=== PATIENT | female | born 1980 | race Caucasian/White ===

== ENCOUNTER 2022-05-11 14:12 | Emergency (ER) | payer BC, SELFPAY ==
[2022-05-11 14:13] VITALS: BP 131/82; RESP 21; TEMP 36.3; O2SAT 100
--- NOTE | 2022-05-11 14:41 | ED_ITS ---
HPI - Abdominal Pain General Chief Complaint: Abdominal Pain Stated Complaint: Abdominal pain L side Time Seen by Provider: 05/11/22 14:19 History of Present Illness HPI narrative: This 42-year-old female comes in with left lower quadrant abdominal pain that began a few days ago. She states that it is a constant pain that is worse with movement. She reports that the pain was worse going over bumps in the car on the way here. She denies having any fevers, altered bowel function, blood in the toilet, dysuria, or other symptoms. She does have a history of diverticulitis a couple times in the past and states that these symptoms feel very similar. Related Data Previous Rx's Medication Instructions Recorded ciprofloxacin HCl 500 mg tablet 500 mg PO BID #20 tabs 05/11/22 (Cipro) fluconazole 100 mg tablet 100 mg PO DAILY #10 tabs 05/11/22 (Diflucan) hydrocodone 5 mg-acetaminophen 325 1 tab PO Q4-6H PRN pain #10 tabs 05/11/22 mg tablet metronidazole 500 mg tablet 500 mg PO BID 10 days #20 tabs 05/11/22 Allergies Allergy/AdvReac Type Severity Reaction Status Date / Time codeine AdvReac Severe Anaphylaxis Verified 05/11/22 14:16 Review of Systems Status of ROS Reports: 10 or more systems reviewed and unremarkable except as noted in History and below Narrative Constitutional: No fevers, no weight gain or loss. Eyes: No discharge. No vision changes. HENT: No congestion, no sore throat, no ear pain. Cardiovascular: No chest pain, no palpitations. Respiratory: No shortness of breath, no wheezes, no cough. Gastrointestinal: No vomiting, no diarrhea. Abdominal pain as described above. Genitourinary: No dysuria, no hematuria. Musculoskeletal: Normal range of motion. Skin: No rashes, no pruritis. Neurological: No dizziness, weakness, sensory change, speech change. Endo/Heme/Allergies: No bruising or bleeding. No polydipsia. Pysch: no suicidality, no anxiety, no insomnia. All other systems reviewed and are negative. [facility] Social History Smoking Status: Never smoker Do you use any of these nicotine containing products: None Second hand tobacco smoke exposure: No How often do you have a drink containing alcohol: never How often do you have six or more drinks on one occasion: Never AUDIT-C Alcohol total score: 0 Non-prescribed substance use: denies use service: No Exam Narrative: Exam Narrative: Constitutional: Well-developed, well-nourished, no acute distress. HEENT: Normocephalic, atraumatic. Neck: Normal range of motion. Nontender. Supple. Heart: Regular. No murmurs. Normal rate. Intact distal pulses. Lungs: Clear to auscultation. No chest discomfort. No wheezes, rhonchi, or rales. Abdomen: Normal bowel sounds. Tenderness in the left lower quadrant. No flank tenderness. Mild rebound tenderness. Genitalia: Deferred. Back: No midline tenderness. Normal range of motion. Extremities: Normal range of motion. No injury. Skin: Intact. No rash. Warm. No erythema or pallor. Neurologic: No altered sensation. No weakness. Alert and oriented. Psychiatric: No suicidality. No anxiety or depression. No insomnia. Nursing notes and vitals signs are reviewed. Const: Vital Signs, click to edit/add: Vital Signs - 24 hr 05/11/22 14:13 Temperature 97.4 F L Respiratory Rate 21 Blood Pressure [Ri ght Upper Arm] 131/82 Pulse Oximetry 100 Oxygen Delivery Me thod Room Air Course Vital Signs Vital signs: Initial Vital Signs Temperature 97.4 F L 05/11/22 14:13 Temperature Source Temporal Artery Scan 05/11/22 14:13 Respiratory Rate 05/11/22 14:13 Blood Pressure 131/82 05/11/22 14:13 Blood Pressure Mean 98 05/11/22 14:13 Blood Pressure Position Sitting 05/11/22 14:13 Pulse Oximetry 100 05/11/22 14:13 Oxygen Delivery Method 05/11/22 14:13 Vital Signs Temperature 97.4 F L 05/11/22 14:13 Respiratory Rate 05/11/22 14:13 Blood Pressure 131/82 05/11/22 14:13 Pulse Oximetry 100 05/11/22 14:13 Oxygen Delivery Method 05/11/22 14:13 Temperature 97.4 F L 05/11/22 14:13 Respiratory Rate 05/11/22 14:13 Blood Pressure 131/82 05/11/22 14:13 Pulse Oximetry 100 05/11/22 14:13 Oxygen Delivery Method 05/11/22 14:13 MDM - Abdominal Pain MDM Narrative Medical decision making narrative: This patient has symptoms that are suspicious for recurrent diverticulitis. She has had this a couple times in the past. I stated the definitive diagnostic test is CT scan with IV contrast but indicated that her vital signs and exam are not indicating a complicated recurrence if it is diverticulitis. I discussed options with the patient and in a process of shared decision making she declined CT imaging for now. I did prescribe Cipro, Flagyl, Diflucan, and a few tablets of [place]. She understands signs and symptoms that would indicate a need for return and re-evaluation. At the time of discharge the patient appears safe for outpatient management. The treatment plan is reviewed along with written and verbal return precautions. Reasons to return and the importance of close followup were also reviewed. Discharge Plan Discharge Clinical Impression: Diverticulitis Patient Disposition: Home, Self-Care Condition: Unchanged Additional Instructions: Take medication as prescribed. Follow up with MD or return if not improving or worsening symptoms happen. Prescriptions: New fluconazole [Diflucan] 100 mg tablet 100 mg PO DAILY Qty: 10 0RF hydrocodone-acetaminophen 5-325 mg tablet 1 tab PO Q4-6H PRN (Reason: pain) Qty: 10 0RF metronidazole 500 mg tablet 500 mg PO BID 10 Days Qty: 20 0RF ciprofloxacin HCl [Cipro] 500 mg tablet 500 mg PO BID Qty: 20 0RF Follow Up/Referrals: Provider,Not a Local [Primary Care Provider] - Stand Alone Forms: [employer] Info Instructions
== END 2022-05-11 14:58 | disposition home or self-care (01) ==
LOC: ED 14:52
PROVIDERS: Emergency Provider Emergency Medicine Emergency Medical Services
DX: K57.92 Diverticulitis of intestine, part unspecified, without perforation or abscess without bleeding (principal)
CPT/HCPCS: 99283; 99284

== ENCOUNTER 2023-10-24 16:48 | Emergency (ER) | payer BC, SELFPAY ==
[2023-10-24 16:54] VITALS: BP 115/74; PULSE 71; RESP 18; TEMP 35.7; O2SAT 97; BMI 28.3
--- NOTE | 2023-10-24 17:11 | ED_ITS ---
HPI - Abdominal Pain General Chief Complaint: Abdominal Pain Stated Complaint: Upper middle abdomen pain-vomiting Time Seen by Provider: 10/24/23 16:50 Source: patient Mode of arrival: ambulatory Limitations: no limitations History of Present Illness HPI narrative: Patient is a 43-year-old female presenting to the emergency department for epigastric pain. She states pain started about 23:00 last night. States feels like heartburn. Has tried some antacids without any improvement in her symptoms. Denies ever having symptoms like this before. No previous abdominal surgeries other than previous . Had a bowel movement this morning that she states was normal. Has been able to drink small amounts but anything more makes her very nauseated. Has not noticed any melena or hematochezia. Denies fevers, chills, chest pain, shortness of breath, weakness, lightheadedness, dizziness. Has not taking anything else for pain. No other concerning medical conditions. States it is a burning sensation feels like heartburn and epigastric region that does not radiate anywhere. Denies dysuria, vaginal discharge, vaginal bleeding. Related Data Home Medications ?Medication ?Instructions ?Recorded ?Confirmed No Known Home Medications 10/24/23 10/24/23 Allergies Allergy/AdvReac Type Severity Reaction Status Date / Time codeine AdvReac Severe Anaphylaxis Verified 10/24/23 18:57 Review of Systems Status of ROS Reports: 10 or more systems reviewed and unremarkable except as noted in History and below [facility] Social History Smoking Status: Never smoker Do you use any of these nicotine containing products: None Second hand tobacco smoke exposure: No How often do you have a drink containing alcohol: never How often do you have six or more drinks on one occasion: Never AUDIT-C Alcohol total score: 0 Non-prescribed substance use: denies use service: No Exam Narrative: Exam Narrative: Const: Well-nourished, Well-developed, in moderate distress Eyes: PERRL, no conjunctival injection, and symmetrical lids HENT: Atraumatic external nose and ears. Moist mucous membranes. Neck: Symmetric, trachea midline, No thyromegaly. CVS: RRR, No murmurs or gallops. Peripheral pulses 2+ and equal in all extremities RESP: Unlabored respiratory effort. Clear to auscultation bilaterally. GI: Nontender/Nondistended, No rebound or guarding. MSK:Extremities w/o deformity, Normal Active ROM Skin: Warm, Dry. No rashes or lesions. Neuro: Normal Muscle tone, No focal neurological deficits. Psych: Awake, Alert, & Oriented x3. Appropriate mood and affect. Const: Vital Signs, click to edit/add: Vital Signs - 24 hr 10/24/23 16:54 Temperature 96.3 F L Pulse Rate [Pulse Oximeter] 71 Respiratory Rate 18 Blood Pressure [Ri t Upper Arm] 115/74 Pulse Oximetry 97 Oxygen Delivery Me thod Room Air Course Vital Signs Vital signs: Initial Vital Signs Temperature 96.3 F L 10/24/23 16:54 Temperature Source Temporal Artery Scan 10/24/23 16:54 Pulse Rate 71 10/24/23 16:54 Respiratory Rate 18 10/24/23 16:54 Blood Pressure 115/74 10/24/23 16:54 Blood Pressure Mean 87 10/24/23 16:54 Blood Pressure Position Sitting 10/24/23 16:54 Pulse Oximetry 97 10/24/23 16:54 Oxygen Delivery Method Room Air 10/24/23 16:54 Vital Signs Temperature 96.3 F L 10/24/23 16:54 Pulse Rate 71 10/24/23 16:54 Respiratory Rate 18 10/24/23 16:54 Blood Pressure 115/74 10/24/23 16:54 Pulse Oximetry 97 10/24/23 16:54 Oxygen Delivery Method Room Air 10/24/23 16:54 Temperature 96.3 F L 10/24/23 16:54 Pulse Rate 71 10/24/23 16:54 Respiratory Rate 18 10/24/23 16:54 Blood Pressure 115/74 10/24/23 16:54 Pulse Oximetry 97 10/24/23 16:54 Oxygen Delivery Method Room Air 10/24/23 16:54 Medications Administered Medications: Discontinued Medications Generic Name Dose Route Start Last Admin Trade Name Freq PRN Reason Stop Dose Admin Lactated Ringer's 1,000 mls @ 1,000 mls/hr 10/24/23 17:09 10/24/23 19:50 Lactated Ringers 1000 Ml IV 10/24/23 18:08 Infused .Q1H ONE Infusion Lidocaine/Aluminum/Magnesium/Simeth 30 ml 10/24/23 17:09 10/24/23 17:50 Gi Cocktail (Visc Lido/Antacid) 30 Ml PO 10/24/23 17:10 30 ml ONCE ONE Administration Morphine Sulfate 4 mg 10/24/23 18:21 10/24/23 18:34 Morphine 4 Mg/Ml Inj IVP 10/24/23 18:22 4 mg ONCE ONE Administration Ondansetron HCl 4 mg 10/24/23 18:05 10/24/23 18:33 Ondansetron 2 Mg/Ml Inj IVP 10/24/23 18:06 4 mg ONCE ONE Administration MDM - Abdominal Pain MDM Narrative Medical decision making narrative: Patient is a 43-year-old female presenting to the emergency department for epigastric pain. She describes as a burning sensation. Seems like very well could be gastric ulcers concerning location of the pain. Symptoms could also be from pancreatitis. Gallbladder issues seem less likely considering the normal Singh sign and no tenderness of the right upper quadrant. Has a previous C- section and there is possibility for an SBO. Also order CBC, CMP, urinalysis, test. Will give a L of lactated Ringer's. Will try GI cocktail to see if that helps with the symptoms 1st. While unlikely epigastric pain could be an atypical sign of ACS. Will do a troponin and EKG. GI cocktail did not improve symptoms. Morphine was given. Zofran given for nausea. Due to continuing to have symptoms despite the GI cocktail will do a CT scan. CBC and CMP showed no concerning abnormalities. Troponins have been normal limits an EKG did show sinus bradycardia. She is asymptomatic of the sinus bradycardia and seems unrelated to her symptoms. She is feeling much better after the morphine. CT scan was done and read. It showed no acute concerning abnormalities as reviewed by myself and the radiologist. She is feeling much better at this time she will be discharged. Did speak to her about pain control at this time. I explained not given oxycodone very calmly for her pain but considering she is not really showing any pain seeking behavior and she seemed to be in a pain when she 1st came in that is now greatly improved I stated I am agreeable to give her 4 pills but explained she would not be able to get any further medications at this for her pain. She is agreeable at this time. Will also prescribe her Zofran Lab Data Labs: Lab Results 10/24/23 10/24/23 Range/Units 18:02 19:08 WBC 7.43 (4.50-11.00) K/uL RBC 4.18 (4.00-5.20) m/uL Hgb 13.5 (12.0-16.0) gm/dL Hct 44.2 (33.0-51.0) % MCV 106 H (80-100) fL MCH 32 (26-34) pg MCHC 31 L (32-36) gm/dL RDW Coeff of [place]isha 12.2 (11.5-15.5) % Plt Count 259 (140-440) K/uL Neut % (Auto) 47.5 (42.0-72.0) % Lymph % (Auto) 41.2 (20-44) % [place] % (Auto) 8.2 (0.0-11.0) % Eos % (Auto) 2.2 (0.0-7.0) % Baso % (Auto) 0.8 (0.0-3.0) % Neut # (Auto) 3.53 (1.7-7.0) K/uL Lymph # (Auto) 3.06 H (0.90-2.90) K/uL [place] # (Auto) 0.60 (0.00-0.90) K/UL Eos # (Auto) 0.16 (0.00-0.50) K/uL Baso # (Auto) 0.06 (0.00-0.30) K/uL Abs Immat Gran (auto) 0.01 (0.00-0.30) K/uL Imm/Tot Granulo (auto) 0.1 % Sodium 137 (135-149) mmol/L Potassium 3.7 (3.6-5.1) mmol/L Chloride 109 (96-114) mmol/L Carbon Dioxide 23 (20-32) mmol/L Anion Gap 5 L (7-15) mEq/L BUN 9 (5-24) mg/dL Creatinine 0.7 (0.5-1.5) mg/dL Estimated Creat Clear 94.21 Estimated GFR 111 ml/min Glucose 95 (60-115) mg/dL Calcium 8.9 (8.4-10.6) mg/dL Total Bilirubin 0.7 (0.1-1.5) mg/dL AST 23 (12-35) U/L ALT 20 (4-35) U/L Alkaline Phosphatase 58 (40-150) U/L Total Protein 6.8 (6.0-8.3) g/dL Albumin 4.2 (3.3-5.0) g/dL Lipase 40 (23-300) U/L HCG, Qual Negative (Negative) Urine Color Yellow (Yellow) Urine Appearance Clear (Clear) Urine pH 6.5 (5.0-8.5) Ur Specific [place] 1.010 (1.000-1.030) Urine Protein Negative (Negative) Urine Glucose (UA) Negative (Negative) Urine Ketones Negative (Negative) Urine Blood Negative (Negative) Urine Nitrite Negative (Negative) Urine Bilirubin Negative (Negative) Urine Urobilinogen 0.2 (0.2-1.0) Ur Leukocyte Esterase Negative (Negative) Urine RBC 0-2 (0-2) Urine WBC 0-2 (0-5) Ur Squamous Epith Cells None (None-Few) Urine Bacteria None (None) POC Troponin I 0.00 L (0.01-0.04) ng/ml Imaging Data CT scan abdomen pelvis: Attestation: I have reviewed the pertinent imaging results. Radiologist's impression: No acute findings in the abdomen or pelvis. Please note that all CT scans at this facility use dose modulation, iterative reconstruction, and/or weight-based dosing when appropriate to reduce radiation dose to as low as reasonably achievable. Dictated by Brianne Padilla MD @ 10/24/2023 7:53:26 PM ECG Data Attestation: I personally reviewed and interpreted this ECG as follows: Prior ECG tracings: not available for review Interpretation: Sinus bradycardia rate 57 beats per minute, normal intervals, normal axis, no ST or T-wave abnormalities. Discharge Plan Discharge Clinical Impression: Gastroenteritis Patient Disposition: Home, Self-Care Condition: Improved Instructions: Gastroenteritis (ED) Additional Instructions: Your CT scan labs showed no concerning abnormalities. This seems most likely to be gastroenteritis. I will prescribe you 4 pills of oxycodone to [facility]. I also prescribe Zofran through [facility]. Can also take Tylenol ibuprofen for p ain. Follow-up with primary care provider if symptoms persist. Prescriptions: No Action No Known Home Medications Follow Up/Referrals: Provider,Not a Local [Primary Care Provider] - Stand Alone Forms: [employer] Info Instructions
[2023-10-24] MEDS: GI COCKTAIL (VISC LIDO/ANTACID) 30 ML PO (17:50)
--- NOTE | 2023-10-24 18:04 | CRLHL7_ITS ---
For Patients: As a result of the Century Cures Act, medical imaging exams and procedure reports are released immediately into your electronic medical record. You may view this report before your referring provider. If you have questions, please contact your health care provider. INDICATION: Upper abdominal pain. TECHNIQUE: CT of the abdomen and pelvis acquired with 89 cc Isovue 370 IV contrast. Coronal and sagittal reconstructions. COMPARISON: None. FINDINGS: The liver, gallbladder, spleen, pancreas, and adrenal glands are negative. No biliary dilation. Portal veins are patent. Symmetric enhancement of the kidneys. No hydronephrosis or ureteral dilation. No obstructing urinary calculi identified. No bladder wall thickening. Uterus and ovaries are unremarkable. Tampon in the vagina. Metallic density between the labia is presumably a piercing. No small bowel dilation. Moderate amount of stool throughout the colon. Colonic diverticulosis without evidence of diverticulitis. Negative appendix. No intraperitoneal free air or fluid. No lymphadenopathy. Tiny fat containing umbilical hernia. The bones are unremarkable. Bibasilar atelectasis. IMPRESSION: No acute findings in the abdomen or pelvis. Please note that all CT scans at this facility use dose modulation, iterative reconstruction, and/or weight-based dosing when appropriate to reduce radiation dose to as low as reasonably achievable. Dictated by Brianne Padilla MD @ 10/24/2023 7:53:26 PM (Electronically Signed)
[2023-10-24 18:14] LABS: Basophils Absolute Auto 0.06 K/uL (0.00-0.30); Basophils Percent Auto 0.8 % (0.0-3.0); Eosinophils Absolute Auto 0.16 K/uL (0.00-0.50); Eosinophils Percent Auto 2.2 % (0.0-7.0); Hematocrit 44.2 % (33.0-51.0); Hemoglobin* 13.5 gm/dL (12.0-16.0); Immature Granulocytes Abs Auto 0.01 K/uL (0.00-0.30); Immature Granulocytes Pct Auto 0.1 %; Lymphocytes Absolute Auto 3.06 K/uL (0.90-2.90); Lymphocytes Percent Auto 41.2 % (20-44); Mean Corpuscular HGB Conc 31 gm/dL (32-36); Mean Corpuscular Hemoglobin 32 pg (26-34); Mean Corpuscular Volume 106 fL (80-100); Monocytes Percent Auto 8.2 % (0.0-11.0); Neutrophils Absolute Auto 3.53 K/uL (1.7-7.0); Neutrophils Percent Auto 47.5 % (42.0-72.0); Platelet Count* 259 K/uL (140-440); RDW Coefficient of Variation % 12.2 % (11.5-15.5); Red Blood Count 4.18 m/uL (4.00-5.20); White Blood Count* 7.43 K/uL (4.50-11.00)
[2023-10-24 18:25] LABS: Slide Review Reflex No
[2023-10-24 18:27] LABS: Albumin* 4.2 g/dL (3.3-5.0); Chloride* 109 mmol/L (96-114)
[2023-10-24 18:28] LABS: Potassium* 3.7 mmol/L (3.6-5.1); Sodium* 137 mmol/L (135-149)
[2023-10-24 18:30] LABS: Alkaline Phosphatase* 58 U/L (40-150); Anion Gap 5 mEq/L (7-15); Aspartate Amino Transferase* 23 U/L (12-35); Bilirubin Total* 0.7 mg/dL (0.1-1.5); Blood Urea Nitrogen* 9 mg/dL (5-24); Carbon Dioxide* 23 mmol/L (20-32); Creatinine* 0.7 mg/dL (0.5-1.5); Est. Creatinine Clearance* 94.21; Estimated Glomerular Filt Rate 111 ml/min; Lipase* 40 U/L (23-300); Total Protein* 6.8 g/dL (6.0-8.3)
[2023-10-24 18:31] LABS: Alanine Aminotransferase* 20 U/L (4-35); Calcium* 8.9 mg/dL (8.4-10.6); Glucose* 95 mg/dL (60-115)
[2023-10-24] MEDS: LACTATED RINGERS 1000 ML 1,000 ML IV (18:32)
[2023-10-24] MEDS: ONDANSETRON 2 MG/ML inj 4 MG IVP (18:33)
[2023-10-24] MEDS: MORPHINE 4 MG/ML INJ IVP (18:34)
[2023-10-24 18:35] LABS: HCG Qualitative Serum* Negative (Negative)
[2023-10-24 19:00] VITALS: O2SAT 97
[2023-10-24 19:15] LABS: Appearance Urine Clear (Clear); Bilirubin Urine Negative (Negative); Blood Urine Negative (Negative); Color Urine Yellow (Yellow); Glucose Urine Negative (Negative); Ketones Urine Negative (Negative); Leukocyte Esterase Urine Negative (Negative); Nitrite Urine Negative (Negative); Protein Urine Negative (Negative); Urobilinogen Urine 0.2 (0.2-1.0); pH Urine 6.5 (5.0-8.5)
[2023-10-24 19:21] LABS: RBC Urine 0-2 (0-2); WBC Urine 0-2 (0-5)
[2023-10-24 20:04] VITALS: BP 124/78; PULSE 68; RESP 18; TEMP 36.4; O2SAT 97
[2023-10-24 20:05] VITALS: BP 124/78; PULSE 68; RESP 18; TEMP 36.4
[2023-10-24 20:27] LABS: Ur HCG Qualitative* Negative (Negative)
== END 2023-10-24 20:07 | disposition home or self-care (01) ==
PROVIDERS: Emergency Provider Student in an Organized Health Care Education/Training Program
DX: K52.9 Noninfective gastroenteritis and colitis, unspecified (principal)
CPT/HCPCS: 36415; 74177; 80053; 81001; 81025; 83690; 84484; 84703; 85025; 93005; 94761; 96374; 96375; 99283; 99284; 99285; A9270; J2270; J2405; J7120; Q9967

== ENCOUNTER 2024-10-09 22:24 | Outpatient (CLI) | payer OTHER, SELFPAY | END 2024-10-09 22:25 | disposition home or self-care (01) | PROVIDERS: Visit Provider Emergency Medicine | DX: R10.9 Unspecified abdominal pain (principal) | CPT/HCPCS: A0425; A0427 ==